=== PATIENT | male | born 1985 | race Caucasian/White ===

== ENCOUNTER 2016-09-05 21:31 | Emergency (ER) | payer BC ==
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
[2016-09-05 23:04] LABS: Hematocrit 44 % (42-52); Hemoglobin 14.8 g/dl (14.0-18.0); Mean Corpuscular HGB Conc 34 g/dl (31-36); Mean Corpuscular Hemoglobin 31 pg (27-31); Mean Corpuscular Volume 92 fL (80-94); Mean Platelet Volume 8 um3 (7.4-10.4); Red Blood Count 4.75 10^6/ul (4.0-5.4); Red Cell Distribution Width 13 % (10.5-15); White Blood Count 9.6 10^3/ul (3.5-10.8)
[2016-09-05 23:19] LABS: Albumin 4.3 g/dL (3.2-5.2); BUN/Creatinine Ratio 20.9 (8-20); Calcium 9.2 mg/dL (8.6-10.3); EGFR African American 123.4 (>60); Globulin 2.5 g/dL (2-4); Potassium 4.1 mmol/L (3.5-5.0); Total Bilirubin 0.4 mg/dL (0.2-1.0); Total Protein 6.8 g/dL (6.4-8.9)
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
[2016-09-06] MEDS ORDERED: Iohexol 300* (CONTRAST) 10 ML SDV IV ONE (00:14)
[2016-09-06] MEDS ORDERED: Ketorolac INJ* 30 MG/ML 1 ML VIAL IV PUSH ONE (00:30)
[2016-09-06 01:44] VITALS: BP 126/63
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
== END 2016-09-06 01:43 | disposition home or self-care (01) ==
LOC: ED 21:31
DX: S09.90XA Unspecified injury of head, initial encounter (principal); S80.10XA Contusion of unspecified lower leg, initial encounter; R11.0 Nausea; R51 Headache; V86.59XA Driver of other special all-terrain or other off-road motor vehicle injured in nontraffic accident, initial encounter; Y93.9 Activity, unspecified; Y92.9 Unspecified place or not applicable; Y99.9 Unspecified external cause status; F17.210 Nicotine dependence, cigarettes, uncomplicated
CPT/HCPCS: 36415; 70450; 70486; 71260; 74177; 80053; 85025; 96374; 99282; J1885; Q9967

== ENCOUNTER 2017-07-18 14:51 | Emergency (ER) | payer BC ==
[2017-07-18 15:39] VITALS: BP 116/75
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
--- NOTE | 2017-07-18 16:31 | RAD ---
Indication: LEFT fourth finger pain at the metacarpal phalangeal joint for 4 days. Question inflamed dermal appendage. Pain at the proximal phalanx. Swelling. Comparison: No relevant prior exams available on the [facility] P[facility] for comparison. Technique: AP and lateral views LEFT hand. Report: Mild soft tissue swelling without focality. No conspicuous foreign body or subcutaneous emphysema. Negative for acute fracture or articular malalignment. Small chronic appearing fracture fragment at the ulnar base of the third proximal phalanx most consistent with a metacarpal phalangeal joint ligament avulsion. Mild osteophytosis and joint space narrowing at the fifth distal interphalangeal joint. IMPRESSION: Nonfocal soft tissue swelling without additional acute finding.
== END 2017-07-18 17:02 | disposition home or self-care (01) ==
LOC: UCEAST 14:51
DX: L02.512 Cutaneous abscess of left hand (principal); F17.210 Nicotine dependence, cigarettes, uncomplicated
CPT/HCPCS: 99212; G0463

== ENCOUNTER 2017-11-27 10:09 | Emergency (ER) | payer BC ==
[2017-11-27 10:21] VITALS: BP 133/89
--- NOTE | 2017-11-27 11:17 | UC ---
Chelsey Ferreira Jason, scribed for [facility] on 11/27/17 at 1054 . Ear Complaint HPI - HPI Summary HPI Summary: In Room Note: This patient is a 32 year old M presenting to [facility] with a chief complaint of right ear bleeding since this morning. The patient states experienced blood in the right ear this morning and last night he experienced left ear pain. He includes that last week he had strep throat and was treated with penicillin for 10 days. Additionally, he has ongoing social stresses, such as separation from his significant other and has difficulty sleeping at night. Pt has been using an inhaler since 4 days ago. The patient rates the pain 6/10 in severity. Symptoms aggravated by nothing. Symptoms alleviated by nothing. Patient reports congestion, productive cough, chest discomfort, and nausea when eating. Patient denies vomiting and diarrhea. Physicians Note: Vital signs stable. Afebrile. BP 133/89, pulse ox 100. 6/10 chest discomfort. Heavy every day tobacco smoker. Visit history: noncontributory to present complaint. No allergies, he is on no medications. Nurses Note: pt c/o congestion, pt had strep throat last week and was on abx. pt states he seems to be getting worse. pt has a cough with lung pain from coughing. pt states this am he woke up with blood in rt ear. pt is most concerned with chest congestion. pt has brown and green mucus. - History of Current Complaint Chief Complaint: UCEar Stated Complaint: EAR COMPLAINT, CONGESTED Time Seen by Provider: 11/27/17 10:37 Hx Obtained From: Patient Onset/Duration: Sudden Onset, Lasting Hours - since 2 hours ago., Still Present Pain Intensity: 6 Pain Scale Used: 0-10 Numeric Aggravating Factors: Nothing Alleviating Factors: Nothing - Allergies/Home Medications Allergies/Adverse Reactions: Allergies Allergy/AdvReac Type Severity Reaction Status Date / Time No Known Allergies Allergy Verified 11/27/17 10:21 PMH/Surg Hx/FS Hx/Imm Hx Previously Healthy: No Cardiovascular History: Hypertension Respiratory History: Pneumonia - Surgical History Surgical History: Yes Surgery Procedure, Year, and Place: APPENDECTOMY-at age 8 - Family History Known Family History: Positive: Cardiac Disease - Social History Alcohol Use: Weekly Substance Use Type: None Smoking Status (MU): Heavy Every Day Tobacco Smoker Type: Cigarettes Amount Used/How Often: 1 ppd - Immunization History Most Recent Tetanus Shot: UTD Review of Systems ENT: Ear Ache - left ear pain., Sinus Congestion, Other - right ear bleeding Respiratory: Cough - productive Cardiovascular: Other - chest discomfort Gastrointestinal: Negative - vomiting, diarrhea, Nausea - when eating All Other Systems Reviewed And Are Negative: Yes Physical Exam - Summary Physical Exam Summary: Appearance: The patient is well-appearing, is in no pain distress, and is well- nourished. Eyes: Conjunctiva are clear. ENT: The hearing is grossly normal, the pharynx is normal, and the TMs are normal. There is no muffled or hoarse voice. Superficial bleeding of the external auditory canal, near the ear drum. The ear drum is intact. There is no evidence of fluid behind the ear drum or infection. Neck: The neck is supple and there is no lymphadenopathy. Respiratory: The chest is nontender.There is no respiratory distress. Diffuse wheezing and rhonchi. Cardiovascular: Heart is regular rate and rhythm. There is no murmur. Abdomen: The abdomen is soft and nontender. There is no organomegaly. Bowel sounds: present Musculoskeletal: Strength is intact. The patient moves all extremities. Neurological: The patient is alert. Psychological: The patient displays age appropriate behavior Skin: Negative for rashes Triage Information Reviewed: Yes Vital Signs: Initial Vital Signs Temp 98.8 F 11/27/17 10:16 Pulse 84 11/27/17 10:16 Resp 18 11/27/17 10:16 BP 133/89 11/27/17 10:16 Pulse Ox 100 11/27/17 10:16 Vital Signs Reviewed: Yes Ear Complaint Course/Dx - Course Course Of Treatment: Pt is a 32 year old white male with a complaint of a right ear bleed and increased congestion. He was previously treated for strep throat and is a 1 pack per day smoker who is under considerable stress. He is a heavy drinker when he drinks once a week. Pt has bronchospasm and may have atypical pneumonia. He is bleeding from the right auditory canal. He will be starting on antibiotic eardrops for 1 week as well as doxycycline, and albuterol with a spacer. He has been advised to start with over the counter Mylanta and Zantac, and to decrease smoking and drinking. Pt was also advised to follow up with PCP in 10-14 days. Medications have been included in the original chart and reviewed. Elevated BP but has current hypertension diagnosis and treatment. This should be rechecked a few times in the next month. Patient has been given an antibiotic because findings on physical examination and health history. The risks and benefits of antibiotic treatment have been discussed and patient has voiced understanding of these risks including the possibility of developing clostridium difficile enterocolitis. - Differential Dx/Diagnosis Provider Diagnoses: bronchitis with bronchospasm, probable gastritis. Discharge - Sign-Out/Discharge Documenting (check all that apply): Discharge - Discharge Plan Condition: Stable Disposition: HOME Prescriptions: Ciproflox/Dexameth OTIC.SUSP* [Ciprodex OTIC.SUSP*] 1 drop .SEE ORDER TID #1 btl MDD 3 DOXYcycline CAP(*) [DOXYcycline 100MG CAP(*)] 100 mg PO BID #14 cap Inhaler, Assist Devices [Aerochamber Mv] 1 mis XX Q6HR #1 mis Patient Education Materials: Gastritis (ED), Otitis Externa (ED), Acute Bronchitis (ED), Bronchospasm (ED) Referrals: Salvador Jane MD [Primary Care Provider] - Additional Instructions: WE DISCUSSED: 1. You have bronchitis with bronchospasm and possibly walking pneumonia. 2. Use inhaler and spacer, 2 puffs three to four times a day. 3. Begin doxycycline, one pill twice a day for 10 days. This is an antibiotic. 4. You may have gastritis from alcohol and smoking. Begin over the counter Mylanta and Zantac. 5. Your blood pressure is slightly elevated. Check this and follow up with your doctor over the next few months. 6. Recheck at any time for increased pain, temperature, difficulty breathing or swallowing. 7. Your right ear is bleeding from your canal. Use ear drops. Put ear drops on cotton if it continues to bleed. Change cotton every four hours. Do this for the next 1-2 days. Then just use the drops. You DON'T have an infection of the ear canal at this time, but I have given you information about this. The drops should prevent this condition. - Billing Disposition and Condition Condition: STABLE Disposition: HOME The documentation as recorded by the Chelsey scott Jason accurately reflects the service I personally performed and the decisions made by , Jordi Appiah MD.
== END 2017-11-27 11:30 | disposition home or self-care (01) ==
LOC: UCEAST 10:09
DX: J20.9 Acute bronchitis, unspecified (principal); H92.21 Otorrhagia, right ear; I10 Essential (primary) hypertension; F17.210 Nicotine dependence, cigarettes, uncomplicated
CPT/HCPCS: 99212; G0463

== ENCOUNTER 2017-12-31 03:14 | Emergency (ER) | payer BC ==
[2017-12-31] MEDS ORDERED: NS 0.9% 500 ML* 500 ML IV ONE (03:53)
[2017-12-31 04:05] LABS: ABS Basophils 0.1 10^3/ul (0-0.2); ABS Eosinophils 0.1 10^3/ul (0-0.6); ABS Lymphocytes 3.3 10^3/ul (1.0-4.8); ABS Monocytes 0.7 10^3/ul (0-0.8); ABS Neutrophils 8.1 10^3/ul (1.5-7.7); ABS Nucleated RBC 0 10^3/ul; Eosinophil % 0.5 % (0-6); Hematocrit 47 % (42-52); Hemoglobin 16.5 g/dl (14.0-18.0); Lymphocyte % 26.8 % (25-47); Mean Corpuscular HGB Conc 35 g/dl (31-36); Mean Corpuscular Hemoglobin 32 pg (27-31); Mean Corpuscular Volume 92 fL (80-94); Mean Platelet Volume 7.8 um3 (7.4-10.4); Nucleated Red Blood Cells % 0; Platelet Count 202 10^3/ul (150-450); Red Blood Count 5.11 10^6/ul (4.0-5.4); Red Cell Distribution Width 14 % (10.5-15); White Blood Count 12.2 10^3/ul (3.5-10.8)
[2017-12-31 04:10] LABS: INR 0.92 (0.77-1.02)
[2017-12-31 04:22] LABS: EGFR Non-African American 101.8 (>60)
[2017-12-31] MEDS ORDERED: Tetan/Diph/Pertus SYR(Tdap)* 0.5 ML SYR(BOOSTRIX) use SYR IM ONE (05:00)
[2017-12-31 05:54] VITALS: BP 134/78
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
== END 2017-12-31 05:52 | disposition left against medical advice (07) ==
LOC: ED 03:14
DX: T23.241A Burn of second degree of multiple right fingers (nail), including thumb, initial encounter (principal); T22.212A Burn of second degree of left forearm, initial encounter; T22.111A Burn of first degree of right forearm, initial encounter; T23.102A Burn of first degree of left hand, unspecified site, initial encounter; T31.0 Burns involving less than 10% of body surface; X03.3XXA Fall due to controlled fire, not in building or structure, initial encounter; Y93.9 Activity, unspecified; Y92.9 Unspecified place or not applicable; Z23 Encounter for immunization; F17.210 Nicotine dependence, cigarettes, uncomplicated
CPT/HCPCS: 16025; 36415; 80053; 80320; 82375; 83605; 83735; 85025; 85610; 86140; 90471; 90715; 99283; G0480

== ENCOUNTER 2018-06-15 22:07 | Emergency (ER) | payer BC ==
[2018-06-15] MEDS ORDERED: Morphine INJ* 4 MG/ML 1 ML SYRINGE (NEW SYRINGE VERSION) IV ONE (22:39)
[2018-06-15] MEDS ORDERED: Metoclopramide IV* 5 MG/ML 2 ML VIAL IV SLOW PU ONE (22:39)
[2018-06-15] MEDS ORDERED: Aspirin 81 mg CHEW TAB* 81 MG TAB.CHEW PO ONE (22:40)
--- NOTE | 2018-06-15 22:51 | ED ---
HPI Chest Pain - HPI Summary HPI Summary: This patient is a 32 year old M presenting to [facility] with a chief complaint of intermittent chest pain since 4 days ago. Patient notes that the pain began in the lower sternal region, then radiated to the right anterior region and the right shoulder. The patient rates the pain 9/10 in severity. Symptoms aggravated by standing. Symptoms alleviated by lying down. Patient reports shortness of breath. Patient notes a stye underneath his left eye that has been there for 2 weeks. Pt reports that he smokes. Patient notes his Grandfather had massive heart attack at age 52. Pt denies taking any medications. - History of Current Complaint Chief Complaint: EDChestPainROMI Time Seen by Provider: 06/15/18 22:18 Hx Obtained From: Patient Onset/Duration: Started Days Ago - 4 days, Atraumatic, Still Present Timing: Intermittent Initial Severity: Moderate Current Severity: Moderate Pain Intensity: 9 Pain Scale Used: 0-10 Numeric Chest Pain Location: Lower Sternal, Right Anterior Chest Pain Radiates: Yes Chest Pain Radiates To:: Shoulder - right shoulder Aggravating Factor(s): Position - standing Alleviating Factor(s): Position - lying down Associated Signs and Symptoms: Positive: Chest Pain - Allergy/Home Medications Allergies/Adverse Reactions: Allergies Allergy/AdvReac Type Severity Reaction Status Date / Time No Known Allergies Allergy Verified 12/31/17 03:21 Home Medications: Home Medications NK [No Home Medications Reported] 06/15/18 [History Confirmed 06/15/18] PMH/Surg Hx/FS Hx/Imm Hx Endocrine/Hematology History: Denies: Hx Diabetes, Hx Thyroid Disease Cardiovascular History: Denies: Hx Hypertension, Hx Pacemaker/ICD Respiratory History: Denies: Hx Asthma, Hx Chronic Obstructive Pulmonary Disease (COPD) GI History: Denies: Hx Ulcer History: Denies: Hx Renal Disease Musculoskeletal History: Denies: Hx Rheumatoid Arthritis, Hx Osteoporosis Sensory History: Denies: Hx Hearing Aid Psychiatric History: Denies: Hx Panic Disorder - Surgical History Surgery Procedure, Year, and Place: APPENDECTOMY-at age 8 - Immunization History Date of Tetanus Vaccine: utd Date of Influenza Vaccine: none Infectious Disease History: No Infectious Disease History: Denies: Hx Clostridium Difficile, Hx Hepatitis, Hx Human Immunodeficiency Virus (HIV), Hx of Known/Suspected MRSA, Hx Shingles, Hx Tuberculosis, Hx Known/ Suspected VRE, Hx Known/Suspected VRSA, History Other Infectious Disease, Traveled Outside the [place] in Last 30 Days - Family History Known Family History: Positive: Cardiac Disease - grandfather ID at age 52 - Social History Alcohol Use: Weekly Substance Use Type: Reports: None Smoking Status (MU): Heavy Every Day Tobacco Smoker Type: Cigarettes Amount Used/How Often: 1 ppd Review of Systems Positive: Other - stye under left eye Positive: Chest Pain Positive: Shortness Of Breath Musculoskeletal: Other - right shoulder pain Negative: Rash Negative: Headache All Other Systems Reviewed And Are Negative: Yes Physical Exam - Summary Physical Exam Summary: VITAL SIGNS: Reviewed. GENERAL: Patient is a well-developed and nourished MALE who is lying comfortable in the stretcher. Patient is not in any acute respiratory distress. HEAD AND FACE: No signs of trauma. No ecchymosis, hematomas or skull depressions. No sinus tenderness. EYES: PERRLA, EOMI x 2, No injected conjunctiva, no nystagmus. EARS: Hearing grossly intact. Ear canals and tympanic membranes are within normal limits. MOUTH: Oropharynx within normal limits. NECK: Supple, trachea is midline, no adenopathy, no JVD, no carotid bruit, no c- spine tenderness, neck with full ROM. CHEST: Symmetric, no tenderness at palpation LUNGS: Clear to auscultation bilaterally. No wheezing or crackles. CVS: Regular rate and rhythm, S1 and S2 present, no murmurs or gallops appreciated. ABDOMEN: Soft, non-tender. No signs of distention. No rebound no guarding, and no masses palpated. Bowel sounds are normal. EXTREMITIES: FROM in all major joints, no edema, no cyanosis or clubbing. NEURO: Alert and oriented x 3. No acute neurological deficits. Speech is normal and follows commands. SKIN: Dry and warm Triage Information Reviewed: Yes Vital Signs On Initial Exam: Initial Vitals Temp Pulse Resp BP Pulse Ox 98.1 F 95 15 147/74 95 06/15/18 22:09 06/15/18 22:09 06/15/18 22:09 06/15/18 22:09 06/15/18 22:09 Vital Signs Reviewed: Yes Diagnostics - Vital Signs Vital Signs Temp Pulse Resp BP Pulse Ox 06/15/18 22:09 98.1 F 95 15 147/74 95 - Laboratory Result Diagrams: 10/11/18 22:45 06/15/18 22:45 Lab Statement: Any lab studies that have been ordered have been reviewed, and results considered in the medical decision making process. - Radiology CXR Xray Interpretation: No Acute Changes - No acute findings. Radiology Interpretation Completed By: ED Physician - Dr. Webb, pending official report. - EKG 22:11 Cardiac Rate: NL - at 71 bpm EKG Rhythm: Sinus Rhythm ST Segment: Normal Ectopy: None EKG Interpretation: sinus rhythm at 71 bpm with nml axis, nml intervals, and no ischemic change Chest Pain Course/Dx - Course Course Of Treatment: This patient is a 32 year old M reporting chest pain since 4 days ago. Patient notes that the pain began in the lower sternal region, then radiated to the right anterior region and the right shoulder. An EKG reveals sinus rhythm at 71 bpm with nml intervals, nml axis, and no ischemic changes. CXR reveals no acute findings. Test results with no significant abnormalities. In the ED course the patient was given ASA, morphine, and Reglan. 2 negative troponins. Heart score of 1. Patient will be discharged with follow up from his PCP and stress test as an outpatient. The patient is agreeable with this plan. - Diagnoses Provider Diagnoses: Chest pain Discharge - Sign-Out/Discharge Documenting (check all that apply): Patient Departure - discharge home - Discharge Plan Condition: Stable Disposition: HOME Patient Education Materials: Chest Pain (ED) Referrals: Salvador Jane MD [Primary Care Provider] - 1 Day Additional Instructions: Schedule an outpatient stress test. Follow up with your primary care physician in 1-2 days. Return to the emergency department with any new or worsening symptoms. - Attestation Statements Document Initiated by Scribe: Yes Documenting Scribe: Janice Tierney Provider For Whom Scribe is Documenting (Include Credential): Gwen Webb MD Scribe Attestation: Janice Ferreira, scribed for Gwen Webb MD on 06/16/18 at 0207.
[2018-06-15 22:52] LABS: ABS Basophils 0 10^3/ul (0-0.2); ABS Eosinophils 0.2 10^3/ul (0-0.6); ABS Monocytes 0.7 10^3/ul (0-0.8); ABS Neutrophils 2.9 10^3/ul (1.5-7.7); ABS Nucleated RBC 0 10^3/ul; Eosinophil % 2.4 % (0-6); Hematocrit 44 % (42-52); Hemoglobin 15.4 g/dl (14.0-18.0); Lymphocyte % 43.7 % (25-47); Mean Corpuscular HGB Conc 35 g/dl (31-36); Mean Corpuscular Hemoglobin 32 pg (27-31); Mean Corpuscular Volume 92 fL (80-94); Mean Platelet Volume 8.2 um3 (7.4-10.4); Nucleated Red Blood Cells % 0.1; Platelet Count 193 10^3/ul (150-450); Red Blood Count 4.77 10^6/ul (4.00-5.40); Red Cell Distribution Width 13 % (10.5-15); White Blood Count 6.8 10^3/ul (3.5-10.8)
[2018-06-15 23:06] LABS: INR 0.83 (0.77-1.02)
[2018-06-15 23:35] LABS: EGFR Non-African American 73.5 (>60)
[2018-06-16 02:36] VITALS: BP 130/78
--- NOTE | 2018-06-16 08:05 | RAD ---
Indication: Chest pain. Comparison: September 06, 2016 CT. Technique: Upright AP 2307 hours Report: Clear lungs and pleural spaces. Negative for pneumothorax. The heart, pulmonary vasculature, and mediastinal contours are unremarkable. Unremarkable osseous structures and soft tissue contours. IMPRESSION: #. No evidence for acute intrathoracic disease. R0
== END 2018-06-16 02:35 | disposition home or self-care (01) ==
LOC: ED 22:07
DX: R07.89 Other chest pain (principal); M25.511 Pain in right shoulder; R06.02 Shortness of breath; H00.016 Hordeolum externum left eye, unspecified eyelid; Z82.49 Family history of ischemic heart disease and other diseases of the circulatory system; F17.210 Nicotine dependence, cigarettes, uncomplicated
CPT/HCPCS: 36415; 71045; 80053; 82550; 82553; 83735; 83880; 84484; 85025; 85379; 85610; 85730; 93005; 96374; 96375; 99283; A9270-GY; J2270; J2765